=== PATIENT | female | born 1980 | race Asian ===

== ENCOUNTER 2017-03-16 20:19 | Emergency (ER) | payer OTHER ==
[~2017-03-16] VITALS: Ht 154.9 cm; Wt 49.7 kg
[2017-03-16 20:36] VITALS: TEMP 36.8; Ht 154.9 cm; Wt 49.7 kg
[2017-03-16 20:56] VITALS: O2SAT 98
[2017-03-16 21:33] LABS: HEMATOCRIT 38.3 % (37-47); HEMOGLOBIN 13.1 g/dL (12.0-16.0); MEAN CELL VOLUME 89.5 fL (80-100); MEAN CORPUSCULAR HEMOGLOBIN 30.6 pg (25-34); MEAN CORPUSCULAR HGB CONC 34.2 g/dl (32-36); MEAN PLATELET VOLUME 9.2 fL (7.4-10.4); PLATELET COUNT 272 K/uL (130-400); RED CELL DISTRIBUTION WIDTH SD 42.2 fL (36.4-46.3); WHITE BLOOD COUNT 5.93 K/uL (4.8-10.8)
[2017-03-16 21:40] LABS: ALBUMIN 3.7 gm/dl (3.4-5.0); ALT/SGPT 18 U/L (12-78); BLOOD UREA NITROGEN 9 mg/dl (7-18); CALCIUM 8.6 mg/dl (8.5-10.1); CARBON DIOXIDE 27 mmol/L (21-32); CREATININE 0.63 mg/dl (0.60-1.20); GLUCOSE 90 mg/dl (70-99); POTASSIUM 3.5 mmol/L (3.5-5.1); SODIUM 138 mmol/L (136-145)
[2017-03-16 21:45] LABS: ALKALINE PHOSPHATASE 44 U/L (45-117); AST/SGOT 14 U/L (15-37); CKMB < 0.5 ng/ml (0.5-3.6); TOTAL PROTEIN 7.6 gm/dl (6.4-8.2)
--- NOTE | 2017-03-16 22:08 | DIAGNOSTIC IMAGING REPORT ---
CHEST ONE VIEW PORTABLE CLINICAL HISTORY: Atypical chest pain COMPARISON STUDY: No previous studies for comparison. FINDINGS: The cardiac and mediastinal contours are normal. There is no evidence of focal pulmonary consolidation. There is no evidence of failure. No pleural effusions are visualized.[ IMPRESSION: No active disease in the chest. Electronically signed by: Angus Vance M.D. 03/16/2017 10:06 PM Dictated Date/Time: 03/16/2017 10:06 PM
[2017-03-16 22:33] LABS: PTT PATIENT 26.4 SECONDS (21.0-31.0)
[2017-03-16] MEDS ORDERED: [UNRECOGNIZED DRUG - REMARK] PO (22:42)
[2017-03-16] MEDS ORDERED: OPTIRAY 320 IV PRN (22:45)
--- NOTE | 2017-03-16 22:51 | DIAGNOSTIC IMAGING REPORT ---
CT ANGIOGRAM OF THE CHEST CLINICAL HISTORY: Atypical chest pain COMPARISON STUDY: Chest x-ray dated 03/16/2017 TECHNIQUE: Following the IV administration of 93 mL of Optiray-320, CT angiogram of the thorax was performed from the thoracic inlet to the lung bases utilizing the pulmonary embolus protocol. Images are reviewed in the axial, sagittal, and coronal planes. IV contrast was administered without complication. MIP imaging was performed. A dose lowering technique was utilized adhering to the principles of ALARA. CT DOSE: 170.03 mGy.cm FINDINGS: No pathologically enlarged axillary mediastinal or hilar lymph nodes were visualized. There was no evidence of thoracic aortic dilatation. There were no pulmonary artery filling defects to indicate acute pulmonary embolism. No pleural effusions are visualized. There is minor respiratory motion artifact. There are minor basilar atelectatic changes. There is no pneumothorax. There is no focal pulmonary consolidation. IMPRESSION: 1. No evidence of acute pulmonary embolism 2. No evidence of focal pulmonary consolidation Electronically signed by: Angus Vance M.D. 03/16/2017 10:50 PM Dictated Date/Time: 03/16/2017 10:48 PM
--- NOTE | 2017-03-16 23:54 | EMERGENCY ROOM VISIT NOTE ---
History First contact with patient: 21:52 Chief Complaint: REFERRED BY DOCTOR Stated Complaint: SOMETHING WRONG W/HER HEART History of Present Illness The patient is a 36 year old female who presents to the Emergency Room with complaints of pain in her left upper chest. The patient reports that she has had pain in her left chest for one week. The pain radiates slightly into her left arm and she states that occasionally, her arm feels numb. She reports that when she wakes up in the morning, she has difficulty moving her left arm. She states that the pain seems to be slightly worse with a deep breath in and she feels like she is not getting enough air. She has a history of DVT. She reports she recently flew here from [place] a few weeks ago. She does not smoke or take control pills. She denies fevers or cough. She has not tried any medication for her symptoms. She denies leg pain or swelling. Review of Systems A complete 10 point review of systems was reviewed with the patient with pertinent positives and negatives as per history of present illness. All else were negative. Past Medical/Surgical History Medical Problems: (1) DVT (deep venous thrombosis) Social History Smoking Status: Never Smoker Marital Status: Housing Status: lives with family Occupation Status: employed Current/Historical Medications Scheduled [med for leg], 1 DOSE PO DAILY Physical Exam Vital Signs Date Time Temp Pulse Resp B/P (MAP) Pulse Ox O2 Delivery O2 Flow Rate FiO2 03/17/17 00:03 72 20 98/60 99 Room Air 03/16/17 23:23 71 18 95/59 99 Room Air 03/16/17 22:40 81 16 105/61 100 Room Air 03/16/17 21:14 72 03/16/17 20:56 98 Room Air 03/16/17 20:36 36.8 71 16 115/65 100 Room Air Physical Exam VITALS: Vitals are noted on the nurse's note and reviewed by myself. Vital signs stable. GENERAL: This is a 36-year-old female, in no acute distress, nondiaphoretic, well-developed well-nourished. SKIN: The skin was without rashes. EARS: External auditory canals clear, tympanic membranes pearly kam without erythema or effusion bilaterally. EYES: Pupils equal round and reactive to light and accommodation. MOUTH: Mucous membranes moist. Tonsils are not enlarged. Pharynx without erythema or exudate. NECK: Supple without nuchal rigidity. No lymphadenopathy. Cervical spine is nontender. HEART: Regular rate and rhythm without murmurs gallops or rubs. LUNGS: Clear to auscultation bilaterally without wheezes, rales or rhonchi. No retractions or accessory muscle use. MUSCULOSKELETAL: No reproducible chest pain to palpation. NEURO: Patient was alert and oriented to person place and time. Medical Decision & Procedures ER Provider Diagnostic Interpretation: CHEST ONE VIEW PORTABLE FINDINGS: The cardiac and mediastinal contours are normal. There is no evidence of focal pulmonary consolidation. There is no evidence of failure. No pleural effusions are visualized.[ IMPRESSION: No active disease in the chest. CT ANGIOGRAM OF THE CHEST FINDINGS: No pathologically enlarged axillary mediastinal or hilar lymph nodes were visualized. There was no evidence of thoracic aortic dilatation. There were no pulmonary artery filling defects to indicate acute pulmonary embolism. No pleural effusions are visualized. There is minor respiratory motion artifact. There are minor basilar atelectatic changes. There is no pneumothorax. There is no focal pulmonary consolidation. IMPRESSION: 1. No evidence of acute pulmonary embolism 2. No evidence of focal pulmonary consolidation Laboratory Results 03/16/17 20:48 03/16/17 20:48 Test 03/16/17 20:48 03/16/17 21:36 03/16/17 21:40 Red Blood Count 4.28 M/uL (4.2-5.4) Mean Corpuscular Volume 89.5 fL (80-100) Mean Corpuscular Hemoglobin 30.6 pg (25-34) Mean Corpuscular Hemoglobin Concent 34.2 g/dl (32-36) RDW Standard Deviation 42.2 fL (36.4-46.3) RDW Coefficient of Variation 13.0 % (11.5-14.5) Mean Platelet Volume 9.2 fL (7.4-10.4) Anion Gap 8.0 mmol/L (3-11) Est Creatinine Clear Calc Drug Dose 91.3 ml/min Estimated GFR () 131.9 Estimated GFR (Non- 113.8 BUN/Creatinine Ratio 13.8 (10-20) Calcium Level 8.6 mg/dl (8.5-10.1) Total Bilirubin 0.2 mg/dl (0.2-1) Aspartate Amino Transf (AST/SGOT) 14 U/L (15-37) Alanine Aminotransferase (ALT/SGPT) 18 U/L (12-78) Alkaline Phosphatase 44 U/L (45-117) Total Creatine Kinase 65 U/L (26-192) Creatine Kinase MB < 0.5 ng/ml (0.5-3.6) Creatine Kinase MB Ratio (0-3.0) Total Protein 7.6 gm/dl (6.4-8.2) Albumin 3.7 gm/dl (3.4-5.0) Globulin 3.9 gm/dl (2.5-4.0) Albumin/Globulin Ratio 0.9 (0.9-2) Bedside Troponin I < 0.030 ng/ml (0-0.045) Prothrombin Time 10.4 SECONDS (9.0-12.0) Prothromb Time International Ratio 1.0 (0.9-1.1) Activated Partial Thromboplast Time 26.4 SECONDS (21.0-31.0) Partial Thromboplastin Ratio 1.0 ECG Indication: chest pain Rate (beats per minute): 70 Rhythm: normal sinus Findings: no acute ischemic change, no ectopy Comparison ECG Date: no prior available Medical Decision Differential diagnosis includes acute coronary syndrome, pulmonary embolism, pneumothorax, pericarditis, myocarditis, endocarditis, anxiety, musculoskeletal pain, GERD, costochondritis, pneumonia, among others. The patient is a 36-year-old female who presents today complaining of left- sided chest pain. Patient does have a history of DVT and was sent here by her PCP for rule out PE. Labs revealed no leukocytosis or anemia. Concerning electrolyte abnormalities. Troponin was not elevated. CT of the chest was performed due to patient's high risk and was negative for any pulmonary embolism. Patient's symptoms seems to be musculoskeletal by history. She was advised to take ibuprofen at home for symptoms and follow up with primary care for further evaluation. EKG was interpreted by myself and shows a normal sinus rhythm without ischemia or ectopy.. Based on the patient's presentation and work up, I feel the patient is stable for outpatient treatment. The patient was educated to return to the emergency department for any worsening of their current condition or new/concerning symptoms. She will follow up with her PCP. Medication Reconcilliation Current Medication List: was personally reviewed by me (tomorrow or) Blood Pressure Screening Patient's blood pressure: Normal blood pressure Impression Primary Impression: Chest wall pain Departure Information Dispostion Home / Self-Care Condition GOOD Referrals No Doctor, Assigned (PCP) Patient Instructions My [facility] Additional Instructions You have been treated in the Emergency Department for your Non-Cardiac Chest Pain. Laboratory results and Imaging Studies have ruled out any cardiac or pulmonary cause of your chest pain. For pain control, you can use the following [id number] medicines (if >12 yo): - Regular strength (325mg/tab) Tylenol (acetaminophen) 2 tabs every 4-6 hours as needed. Do not exceed 12 tablets in a 24 hour period. Avoid taking more than 4 grams (4000 mg) of Tylenol per day. This includes any other sources of acetaminophen you may take on a regular basis. - Regular strength (200 mg/tab) Advil (ibuprofen) 1-2 tabs every 4-6 hours as needed. Do not exceed a dose of 3200 mg per day. You should schedule a follow-up appointment with your Primary Care Provider in 2 -3 days for further evaluation from today's Emergency Department visit. Return to the Emergency Department if your current symptoms worsen despite treatment course outlined above, or if you develop any of the following symptoms : worsening chest pain, associated jaw/arm pain, nausea, dizziness, shortness of breath, bloody cough, or fainting.
[2017-03-17 00:03] VITALS: BP 98/60; PULSE 72; O2SAT 99
== END 2017-03-17 00:05 | disposition home or self-care (01) ==
LOC: C.EDB 20:21 → C.EDA 03-17 00:05
DX: R07.89 Other chest pain (principal); Z86.718 Personal history of other venous thrombosis and embolism

== ENCOUNTER → 2017-06-04 | Outpatient (CLI) | payer OTHER ==
[~2017-06-04] MED LIST: [UNRECOGNIZED DRUG - REMARK] PO
--- NOTE | 2017-06-04 08:34 | DIAGNOSTIC IMAGING REPORT ---
PELVIC COMPLETE NON OB CLINICAL HISTORY: PELVIC AND PERINEAL PAIN LOW PELVIC PAIN COMPARISON STUDY: None FINDINGS: The uterus measured 6.9 cm. The endometrial stripe measured prominent at 1.3 cm. The right ovary measured 2.4 cm maximum dimension with normal vascular flow. The left ovary measured 2.9 cm maximum dimension with normal vascular flow. There is no ultrasonographic evidence of ovarian torsion. It should be noted that ovarian torsion can be present with normal Doppler ultrasonographic findings. There was no evidence of pathologic free pelvic fluid. IMPRESSION: 1. Moderate prominence of the endometrium at 1.3 cm. 2. Close monitoring is suggested to exclude the possibility of endometrial hyperplasia 3. Remainder of the study is unremarkable. The above report was generated using voice recognition software. It may contain grammatical, syntax or spelling errors. Electronically signed by: Kenneth Vazquez M.D. 06/04/2017 8:32 AM Dictated Date/Time: 06/04/2017 8:31 AM
== END | disposition home or self-care (01) ==
LOC: C.ULTR 07:50
PROVIDERS: ATTEND Nurse Practitioner
DX: R10.2 Pelvic and perineal pain (principal); R93.8 Abnormal findings on diagnostic imaging of other specified body structures

== ENCOUNTER → 2017-06-18 | Outpatient (CLI) | payer OTHER ==
--- NOTE | 2017-06-18 08:14 | DIAGNOSTIC IMAGING REPORT ---
(RENAL)RETROPERITON COMP HISTORY: 37 years-old Female UNSPECIFIED AB PAIN, LLQ AB TENDERNESS, PERSONAL acute left lower quadrant abdominal pain and tenderness COMPARISON: None available TECHNIQUE: Multiple real-time sonographic images of the kidneys and urinary bladder were obtained assessing grayscale appearance and color flow FINDINGS: The right kidney measures 10.2 x 3.6 x 4.9 cm and is unremarkable without renal calculi, hydronephrosis or focal mass. Left kidney measures 10.8 x 3.6 x 4.4 cm and is also within normal limits without renal calculi, hydronephrosis or suspicious mass lesion. Urinary bladder is within normal limits with bilateral ureteral jets noted. IMPRESSION: 1. Unremarkable sonographic appearance of the bilateral kidneys without renal calculi or hydronephrosis. 2. Urinary bladder also appears normal. The above report was generated using voice recognition software. It may contain grammatical, syntax or spelling errors. Electronically signed by: Trav Potter M.D. 06/18/2017 8:13 AM Dictated Date/Time: 06/18/2017 8:11 AM
== END | disposition home or self-care (01) ==
LOC: C.ULTR 07:45
PROVIDERS: ATTEND Nurse Practitioner
DX: R10.814 Left lower quadrant abdominal tenderness (principal); Z87.442 Personal history of urinary calculi; R39.9 Unspecified symptoms and signs involving the genitourinary system